=== PATIENT | female | born 1945 | race Caucasian/White ===

== ENCOUNTER 2024-10-07 11:36 | Day surgery (SDC) | payer MEDICARE, SELFPAY ==
[2024-10-01 16:03] LABS: Hematocrit 39.4 % (37-47); Hemoglobin 13.2 g/dL (12.0-15.0); Mean Corp Hgb Conc 33.5 g/dL (32-36); Mean Corpuscular Volume 90.4 fL (81-99); Mean Platelet Vol. 9.2 fl (6.2-12.0); Platelet Count 334 K/mm3 (150-450); RBC Distribution Width CV 13.2 % (11.6-14.6); RBC Distribution Width SD 43.7 fl (35.1-43.9); Red Blood Count 4.36 M/mm3 (4.2-5.4); White Blood Count 7.1 K/mm3 (4.4-11.0)
[2024-10-01 16:40] LABS: Anion Gap 13 (5-15); BUN 15 mg/dL (4-19); BUN/Creat Ratio 20.8 RATIO (10-20); Calcium,Total 9.2 mg/dL (7.6-11.0); Carbon Dioxide 22.8 mmol/L (21.0-32.0); Chloride 101 mmol/L (98-108); Glucose 176 mg/dL (70-99); Potassium 3.7 mmol/L (3.3-5.1)
[2024-10-07] VITALS (8 sets, daily range): BP systolic 119–167; BP diastolic 62–71; PULSE 57–65; RESP 12–16; TEMP 36.2–36.6; O2SAT 95–100; BMI 25.8
--- NOTE | 2024-10-07 12:00 | LES_PTH ---
PATIENT: NEIL CAMARENA [place] [facility] [place][id number] AGE/SX: 79/F ROOM: RE10/07/[address]: Dr. 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 Tongue, neoplasm of uncertain behavior, excision: * Benign squamous papilloma. MICROSCOPIC DESCRIPTION Slides are reviewed. GROSS DESCRIPTION A. Received in formalin labeled with the patient's name and date of . Designated as tongue lesion is a 0.5 x 0.5 x 0.2 cm montague-pink tissue fragment devoid of orientation. The resection margin is inked black. The specimen is surfaced by a 0.5 x 0.3 x 0.3 cm montague-a white, papillary to somewhat verrucoid lesion. The specimen is bisected (on the long axis) and entirely submitted in 1 cassette. KS 10/07/2024 CPT:87041
--- NOTE | 2024-10-07 12:03 | EKG12_ITS ---
Test Reason : PREOP Blood Pressure : */* mmHG Vent. Rate : 62 BPM Atrial Rate : 62 BPM P-R Int : 160 ms QRS Dur : 82 ms QT Int : 434 ms P-R-T Axes : 60 16 58 degrees QTcB Int : 440 ms Normal sinus rhythm Normal ECG No previous ECGs available Confirmed by Nic Dumont ([id number]), business editor DIMITRI MEZA ([id number]) on 10/09/2024 2:00:28 PM Referred By: Price Young Confirmed By: Nic Dumont
[2024-10-07] MEDS: Lactated Ringers 1,000 ML 15 ML IV (12:30)
--- NOTE | 2024-10-07 12:40 | PCM.PRE.AN2 ---
ASA Classification* ASA Classification ASA Classification: 1 Assessment & Plan Anesthesia* Anesthesia Assessment Anesthesia Assessment: Discussed sedation and/or anesthesia options, risks, benefits, and alternatives with patient/parents/legal guardian/POA. Questions invited. The patient/parents/legal guardian/POA seems to understand and agrees to proceed with anesthesia plan. Reviewed the physical assessment, medical history, allergy history and patient home medications list prior to surgery/procedure/anesthetic and documented any changes. Performed airway and anesthesia risk assessments. Anesthesia Type Anesthesia Type: MAC History Source History Obtained from:: Patient and Chart Anesthesia Focused Assessment* Temperature: 97.8 F Pulse Rate: 64 Blood Pressure: 167/69 Respiratory Rate: 16 Pulse Ox: 100 Oxygen Delivery Method: Room Air Airway Assessment Mouth opens: >3 cm Mallampati Score: I Teeth Condition: Intact Neck Range of motion (ROM): Full ROM Labs Anesthesia Preop lab: CBC WBC 7.1 K/mm3 (4.4-11.0) 10/01/24 15:43 10/01/24 RBC 4.36 M/mm3 (4.2-5.4) 10/01/24 15:43 10/01/24 Hgb 13.2 g/dL (12.0-15.0) 10/01/24 15:43 10/01/24 Hct 39.4 % (37-47) 10/01/24 15:43 10/01/24 Plt Count 334 K/mm3 (150-450) 10/01/24 15:43 10/01/24 CHEMISTRY Potassium 3.7 mmol/L (3.3-5.1) 10/01/24 15:43 10/01/24 Sodium 137 mmol/L (133-145) 10/01/24 15:43 10/01/24 BUN 15 mg/dL (4-19) 10/01/24 15:43 10/01/24 Creatinine 0.71 mg/dL (0.70-1.20) 10/01/24 15:43 10/01/24 Glucose 176 mg/dL (70-99) H 10/01/24 15:43 10/01/24 COAG Pre-Assessment Diagnosis/Proposed Procedure Planned Operative Procedure(s): EXCISION TONGUE LESION Anesthesia History Anesthesia History - supervisor sewing room: Anesthesia History - supervisor sewing room Hx Hospitalization No 10/01/24 10:37 Any Problems With Anesthesia No: NO SURGERY HX 10/01/24 10:37 Cholinesterase deficiency No 10/01/24 10:37 You/Your Family Experience No 10/01/24 10:37 fever (hyperthermia) with Relationship Recent Exposure to Contagious No 10/07/24 12:16 Disease Does patient have nerve No 10/01/24 10:37 stimulator Patient instructed to have device shut off --Does patient have Pacemaker No 10/07/24 12:16 or ICD? When Was Last Pacemaker Check QUESTION #4 FULL TEXT: You/Your Family Experience fever (hyperthermia) with Anesthesia Last Oral Intake Last Oral intake: Last Oral Intake NPO since 08:45 10/07/24 12:16 Meds taken in AM with sips of water? Meds patient instructed to take am of surgery PONV PONV - supervisor sewing room: PONV - supervisor sewing room Female Yes 10/01/24 10:37 HX of Motion Sickness No 10/01/24 10:37 HX of N/V After Surgery No 10/01/24 10:37 Non-Smoker Yes 10/01/24 10:37 Duration of Surgery greater No 10/01/24 10:37 than 60 minutes Number of Risk Factors 2 10/01/24 10:37 PONV Score Moderate Risk 10/01/24 10:37 Height & Weight Height & Weight: Anesthesia: Height & Weight Height 5 ft 5 in 10/07/24 12:16 Weight: 70.4 kg 10/07/24 12:16 Body Mass Index (BMI) 25.8 10/07/24 12:16 Respiratory Assessment Respiratory Assessment - supervisor sewing room: Respiratory Tract Infection Hx - supervisor sewing room Hx Respiratory Tract Infection No 10/01/24 10:37 STOP Sleep Apnea STOP Sleep Apnea - supervisor sewing room: STOP Sleep Apnea - supervisor sewing room Hx Hypertension No 10/01/24 10:37 Hx Sleep Apnea No 10/01/24 10:37 CPAP No 10/01/24 10:37 BIPAP Do you snore loudly (louder No 10/01/24 10:37 than talking or can be heard Do you often feel tired/ No 10/01/24 10:37 fatigued/ sleepy during daytime? Has anyone observed you stop No 10/01/24 10:37 breathing during sleep? STOP Results Negative 10/01/24 10:37 QUESTION #5 FULL TEXT : Do you snore loudly (louder than talking or can be heard through closed doors)? Tobacco Use History Tobacco Use History - supervisor sewing room: Tobacco Use History - supervisor sewing room Tobacco Use Smoking Status Never smoker 10/01/24 10:37 Hx Tobacco Use No 10/01/24 10:37 Years Smoking Packs Smoked per Day Smoking Cessation Date was within the last 15 years Hx Smoking Cessation Date Hx Smoking Cessation Counseling Hematologic Medial History Hematologic Hx - supervisor sewing room: Hematologic Medical Hx - sheet rock installer Hx of Blood Transfusion No 10/01/24 10:37 Hx of Transfusion in last 3 No 10/01/24 10:37 Months Date of Last Transfusion (if within last 3 months) Ever experience any problems No 10/01/24 10:37 with transfusion(s)? Specify any problems Hx of Preganancy in last 3 No 10/01/24 10:37 Months Nurse Filling Out Transfusion DSCHRIBER 10/01/24 10:37 & Questions: Date: 10/01/24 10/01/24 10:37 Time: 10:37 10/01/24 10:37 Patient unable to answer at this time (ie. confused, unrespo /Reproduction History /Reproductive History - supervisor sewing room: /Reproductive Hx- supervisor sewing room Hx Now No 10/01/24 10:37 Gestational Age (in weeks): EDC: Hx Hx Para Hx Section SAB No 10/01/24 10:37 Active Medications Active Medications: Current Medications Generic Name Dose Route Start Last Admin Trade Name Freq PRN Reason Stop Dose Admin Clindamycin Phosphate 900 mg in 50 mls @ 75 mls/hr 10/07/24 14:00 Cleocin IV 10/07/24 14:39 INTRAOP ONE Lactated Ringer's 1,000 mls @ 15 mls/hr 10/07/24 12:00 10/07/24 12:30 IV 15 mls/hr .Q48H PANCHITO Administration PFSH Medical History (Updated 10/01/24 @ 10:45 by Cami Ackerman) High cholesterol Wears glasses Cancer Post-menopausal Shortness of breath on exertion Non-smoker History of echocardiogram History of rheumatic fever Home Medications ?Medication ?Instructions ?Recorded ?Last Taken ?Type cholecalciferol (vitamin D3) 25 25 mcg PO DAILY 10/01/24 Unknown History mcg (1,000 unit) capsule (Vitamin D3) cod liver oil 1 cap PO DAILY 10/01/24 Unknown History simvastatin 10 mg tablet 10 mg PO QHS 10/01/24 Unknown History vitamins A,C,K-zock-zbldai 4,296 1 cap PO DAILY 10/01/24 Unknown History mcg-226 mg-90 mg capsule Allergy/AdvReac Type Severity Reaction Status Date / Time No Known Allergies Allergy Verified 10/07/24 12:15 Surgical History (Updated 10/01/24 @ 10:42 by Cami Ackerman) Hx of right cataract extraction Hx of left cataract extraction Social History Smoking Status: Never smoker Review of Systems (Anesthesia) ROS Narrative System reviewed and no additional complaints, except as documented.
--- NOTE | 2024-10-07 12:51 | PCM.DC.SUM ---
Providers Primary Care Physician: Poly Thompson NP-C Reason For Visit: EXCISION TONGUE LESION Medications at Discharge Home Medications cholecalciferol (vitamin D3) 25 mcg (1,000 unit) capsule (Vitamin D3) 25 mcg PO DAILY 10/01/24 cod liver oil 1 cap PO DAILY 10/01/24 simvastatin 10 mg tablet 10 mg PO QHS 10/01/24 vitamins A,C,W-hxul-icpfgo 4,296 mcg-226 mg-90 mg capsule 1 cap PO DAILY 10/01/24 Weight / BMI Weight Weight: 70.4 kg Body Mass Index (BMI) 25.8 ABG / Lab / Microbiology Data 10/01/24 15:43 10/01/24 15:43 D/C Instructions Discharge Activity: Return to Normal Activity Additional Activity Instructions: Soft diet x 1 week DC O2, CPAP, BIPAP Needs Home O2 Discharge instructions: No Please Follow Up With: Price Young MD When: 2 weeks Meaningful Use Info Meaningful Use Meaningful Use Diagnoses (Choose all that apply): None applicable Discharge Plan Admission Attending Provider: Price Young Primary Care Provider: Poly Thompson NP Instructions Print Language: Nigerian Discharge Orders/Prescriptions Prescriptions: No Action simvastatin 10 mg tablet 10 mg PO QHS cod liver oil Capsule 1 cap PO DAILY cholecalciferol (vitamin D3) [Vitamin D3] 25 mcg (1,000 unit) capsule 25 mcg PO DAILY vitamins A,C,U-ikse-ayrgry 4,296 mcg-226 mg-90 mg capsule 1 cap PO DAILY Disposition Disposition (needs filled in before D/C Order can be placed): Home, Self Care
--- NOTE | 2024-10-07 12:53 | PCM.OPRPT ---
Operative Report (Standard) Operative Information Date of Procedure: 10/07/24 Pre-Operative Diagnosis: tongue neoplasm Post-Operative Diagnosis: same Surgery/Procedure Performed: excision tongue neoplasm (with closure) craft coordinator: No Type of Anesthesia: Local MAC RN Documented Start/Stop Times: Operation Date: 10/07/24 14:00 Case Time Into Pre-Op 10/07/24 11:54 Out of Pre-Op 10/07/24 12:52 Anesthesia Start 10/07/24 12:55 Into Room 10/07/24 12:55 Procedure Start 10/07/24 13:06 Procedure End 10/07/24 13:11 Procedure Start Time: 13:06 Procedure Stop Time: 13:11 Select all DRAINS/GRAFTS/IMPLANTS that apply: None Estimated Blood Loss: minimal Specimen collected: Yes Description of specimen(s) removed: tongue lesion Description of surgery: The patient was taken operating room on 10/07/2024. She was placed in the supine position on the operating room table. She was given sufficient local MAC anesthesia. The head of bed is elevated 30 degrees. A side-biting mouthgag was inserted into the patient's mouth and opened. The tongue was extruded and held with gauze. 1% lidocaine with epinephrine was injected into the mucosa surrounding the lesion. After sufficient vasoconstriction and anesthesia, I excised the lesion in an ellipse with a 15 blade. The specimen was sent for permanent section. I then closed the incision with interrupted 4-0 chromic. All instrumentation was then removed. The patient was then awoke awoken and brought to the recovery room in stable condition. Blood loss minimal, replacement none. Sponge, needle, and instrument count were correct at the end of the procedure. Surgical Findings: tongue lesion Complications Complications: No
[2024-10-07] MEDS: Lidocaine 1% /Epi 1:100 (20ml) 20 ML Vial (13:08)
--- NOTE | 2024-10-07 13:20 | PCM.POST.ANE ---
Anesthesia: Postop Eval I Current Vital Signs Temperature: 97.2 F Pulse Rate: 65 Blood Pressure: 120/62 Respiratory Rate: 12 Pulse Ox: 96 Oxygen Delivery Method: Room Air Assessment Airway patent: Yes Spontaneous unlabored respirations: Yes Mental status: Awake and Calm nausea: No Vomiting: No Anesthesia Complication: No Fluid Hydration Crystalloid volume administer (ml): 300 Total IV fluid infused: 300 Progress Note Anesthesia document: Postop Eval 1 completed: Yes
--- NOTE | 2024-10-07 14:18 | POSTOPAN2_ITS ---
Anesthesia Postop Eval I Sum Postop Eval Completion status Anesthesia document: Postop Eval 1 completed: Yes Anesthesia Postop Eval I Summary Anesthesia Postop Eval I Summary: Anesthesia Postop Eval I: Assessment Summary Airway patent Yes 10/07/24 13:20 NOVELTY CANDY MAKER.SHOF Spontaneous unlabored Yes 10/07/24 13:20 NOVELTY CANDY MAKER.SHOF respirations Mental status Awake,Calm 10/07/24 13:20 NOVELTY CANDY MAKER.SHOF nausea No 10/07/24 13:20 NOVELTY CANDY MAKER.SHOF Vomiting No 10/07/24 13:20 NOVELTY CANDY MAKER.SHOF Anesthesia Postop Eval I: Fluid Summary Crystalloid volume administer 300 10/07/24 13:20 NOVELTY CANDY MAKER.SHOF (ml) Colloids volume administered ( ml) Blood Product volume administered (ml) Total IV fluid infused 300 10/07/24 13:20 NOVELTY CANDY MAKER.SHOF Anesthesia Postop Eval I: Summary Notes Anesthesia Complication No 10/07/24 13:20 NOVELTY CANDY MAKER.SHOF Anesthesia Complication Comment: Post-operative progress note Anesthesia: Postop Eval II Evaluation Mental status: Awake and Calm Pain Level: 0 nausea: No Vomiting: No Complications Anesthesia Complication: No
--- NOTE | 2024-10-07 14:18 | PCM.POSTANE2 ---
Anesthesia Postop Eval I Sum Postop Eval Completion status Anesthesia document: Postop Eval 1 completed: Yes Anesthesia Postop Eval I Summary Anesthesia Postop Eval I Summary: Anesthesia Postop Eval I: Assessment Summary Airway patent Yes 10/07/24 13:20 PUBLIC UTILITIES SALES REPRESENTATIVE.SHOF Spontaneous unlabored Yes 10/07/24 13:20 PUBLIC UTILITIES SALES REPRESENTATIVE.SHOF respirations Mental status Awake,Calm 10/07/24 13:20 PUBLIC UTILITIES SALES REPRESENTATIVE.SHOF nausea No 10/07/24 13:20 PUBLIC UTILITIES SALES REPRESENTATIVE.SHOF Vomiting No 10/07/24 13:20 PUBLIC UTILITIES SALES REPRESENTATIVE.SHOF Anesthesia Postop Eval I: Fluid Summary Crystalloid volume administer 300 10/07/24 13:20 PUBLIC UTILITIES SALES REPRESENTATIVE.SHOF (ml) Colloids volume administered ( ml) Blood Product volume administered (ml) Total IV fluid infused 300 10/07/24 13:20 PUBLIC UTILITIES SALES REPRESENTATIVE.SHOF Anesthesia Postop Eval I: Summary Notes Anesthesia Complication No 10/07/24 13:20 PUBLIC UTILITIES SALES REPRESENTATIVE.SHOF Anesthesia Complication Comment: Post-operative progress note Anesthesia: Postop Eval II Evaluation Mental status: Awake and Calm Pain Level: 0 nausea: No Vomiting: No Complications Anesthesia Complication: No
== END 2024-10-07 14:20 | disposition home or self-care (01) ==
LOC: SDC 11:36 → AC 11:37
PROVIDERS: PCP Nurse Practitioner Primary Care; Referring Provider Otolaryngology; Visit Provider Otolaryngology
PROC: (CPT 41112; principal; 2024-10-07 13:50)
DX: D10.1 Benign neoplasm of tongue (principal)
CPT/HCPCS: 41112; 00170; 36415; 80048; 85027; 88305; 93005